=== PATIENT | female | born 1995 | race Native Hawaiian/Other Pacific Islander ===

== ENCOUNTER 2023-03-30 05:19 | Outpatient (CLI) | payer OTHER ==
[~2023-03-30] VITALS: Ht 160 cm; Wt 86.4 kg
[2023-03-30 05:34] VITALS: BP 122/77
[2023-03-30] MEDS ORDERED: TUMS500C PO (06:43)
[2023-03-30] MEDS ORDERED: PRENTAB9 PO (06:43)
[2023-03-30] MEDS ORDERED: IRON65TA2 PO (06:43)
[2023-03-30] MEDS ORDERED: HOME MED LIST COMPLETE! XX SCH (06:45)
[2023-03-30 08:43] VITALS: BP 121/81
== END 2023-03-30 08:55 | disposition home or self-care (01) ==
LOC: M LDO 05:19
PROVIDERS: ATTEND Obstetrics & Gynecology
DX: O47.1 False labor at or after 37 completed weeks of gestation (principal); O48.0 Post-term pregnancy; Z3A.40 40 weeks gestation of pregnancy; O99.013 Anemia complicating pregnancy, third trimester; Z79.899 Other long term (current) drug therapy
CPT/HCPCS: 59025; G0463

== ENCOUNTER 2023-03-31 05:50 | Outpatient (CLI) | payer OTHER ==
[~2023-03-31] VITALS: Ht 160 cm; Wt 85.6 kg
[~2023-03-31 05:50] MED LIST: IRON65TA2 PO; PRENTAB9 PO; TUMS500C PO
[2023-03-31] MEDS ORDERED: HOME MED LIST COMPLETE! XX SCH (06:00)
[2023-03-31 06:02] VITALS: BP 118/73
[2023-03-31 07:40] VITALS: BP 129/85
== END 2023-03-31 08:45 | disposition home or self-care (01) ==
LOC: M LDO 05:50
PROVIDERS: ATTEND Obstetrics & Gynecology
DX: O47.1 False labor at or after 37 completed weeks of gestation (principal); O48.0 Post-term pregnancy; Z3A.40 40 weeks gestation of pregnancy; Z79.899 Other long term (current) drug therapy
CPT/HCPCS: 59025; G0463

== ENCOUNTER 2023-03-31 17:18 | Inpatient (IN) | payer OTHER ==
[2023-03-31] VITALS (26 sets, daily range): BP systolic 90–194; BP diastolic 45–103
[~2023-03-31] VITALS: Ht 160 cm; Wt 85.3 kg
[2023-03-31] MEDS ORDERED: LACTATED RINGER'S 1000 ML IV STA (18:03)
[2023-03-31] MEDS ORDERED: CARBOPROST TROMETHAMINE 250 MCG/ML AMP IM PRN (18:05)
[2023-03-31] MEDS ORDERED: LIDOCAINE 1% MDV 20ML VIAL INFIL PRN (18:05)
[2023-03-31] MEDS ORDERED: OXYTOCIN DRIP 30 UNITS in IV 1 EA IV PRN (18:05)
[2023-03-31] MEDS ORDERED: TRANEXAMIC ACID INJection 1,000 MG in NS 100 ML IV PRN (18:05)
[2023-03-31] MEDS ORDERED: METHYLERGONOVINE MALEATE 0.2MG/ML 1ML VIAL IM PRN (18:05)
[2023-03-31] MEDS ORDERED: OXYTOCIN INJ 10UNITS/ML 1ML VIAL IM PRN (18:05)
[2023-03-31 18:34] LABS: HEMOGLOBIN 12.2 g/dl (12.0-15.5); MEAN CORPUSCULAR HEMOGLOBIN 30.7 pg (27.0-33.0); MEAN CORPUSCULAR HGB CONC 33.9 g/dl (32.0-36.5); MEAN CORPUSCULAR VOLUME 90.7 fl (80.0-96.0); PLATELET COUNT, AUTOMATED 215 10^3/uL (150-450); RED BLOOD COUNT 3.97 10^6/uL (4.00-5.40); WHITE BLOOD COUNT 18.1 10^3/uL (4.0-10.0)
[2023-03-31] MEDS ORDERED: LR 500 ML IV PRN (19:05)
[2023-03-31] MEDS ORDERED: EPIDURAL/PCA KEYS XX PRN (19:05)
[2023-03-31] MEDS ORDERED: ONDANSETRON 4MG 2ML VIAL IV PRN (19:05)
[2023-03-31] MEDS ORDERED: diphenhydrAMINE 50MG/ML VIAL IV PRN (19:05)
[2023-03-31] MEDS ORDERED: NALOXONE INJ 0.4MG/1ML VIAL IV PRN (19:05)
[2023-03-31] MEDS: FENTANYL/ROPIVACAINE/NACL BAG 100 ML EPIDURAL SCH (19:06)
[2023-03-31] MEDS: LR 1,000 ML IV SCH (19:11)
[2023-03-31] MEDS: ePHEDrine SULFATE 25 MG/5 ML(5MG/ML) SYRINGE IVP PRN ×3 (19:49→19:55)
[2023-03-31] MEDS ORDERED: CALCIUM CARBONATE 500 MG CHEW U/D PO ONE (22:00)
[2023-04-01] VITALS (40 sets, daily range): BP systolic 95–171; BP diastolic 51–110; O2SAT 99
[2023-04-01] MEDS: LR 1,000 ML IV SCH ×3 (03:37→15:23)
[2023-04-01] MEDS: FENTANYL/ROPIVACAINE/NACL BAG 100 ML EPIDURAL SCH ×2 (05:25→15:05)
[2023-04-01] MEDS ORDERED: OXYTOCIN DRIP 30 UNITS in IV 1 EA IV SCH (09:55)
[2023-04-01] MEDS ORDERED: IBUPROFEN 600MG TAB PO PRN (16:20)
[2023-04-01] MEDS ORDERED: DOCUSATE SODIUM 100MG CAPSULE PO PRN (16:20)
[2023-04-01] MEDS ORDERED: ACETAMINOPHEN 500 MG TAB PO PRN (16:20)
[2023-04-01] MEDS ORDERED: DIBUCAINE 1% OINTMENT 30GM TOP PRN (16:20)
[2023-04-01] MEDS ORDERED: METHYLERGONOVINE MALEATE 0.2 MG TAB PO PRN (16:20)
[2023-04-01] MEDS ORDERED: RHOGAM 300MCG (1500IU) INJ IM SCH (16:20)
[2023-04-01] MEDS ORDERED: ACETAMINOPHEN TAB 650MG DOSE (2X325MG) PO PRN (16:20)
[2023-04-01] MEDS: IBUPROFEN 800 MG TAB PO PRN (17:28)
[2023-04-01] MEDS ORDERED: MORPHINE 4 MG/ML 1ML VIAL As Ordered ONE (18:24)
[2023-04-01] MEDS ORDERED: MORPHINE 4 MG/ML 1ML VIAL IV ONE (18:25)
[2023-04-01] MEDS: OXYTOCIN DRIP 30 UNITS in IV 1 EA IV SCH ×2 (18:28→21:55)
[2023-04-01 19:23] LABS: HEMATOCRIT 30.7 % (36.0-47.0); MEAN CORPUSCULAR HGB CONC 32.9 g/dl (32.0-36.5); MEAN CORPUSCULAR VOLUME 94.2 fl (80.0-96.0); PLATELET COUNT, AUTOMATED 185 10^3/uL (150-450); RED BLOOD COUNT 3.26 10^6/uL (4.00-5.40); WHITE BLOOD COUNT 19.8 10^3/uL (4.0-10.0)
[2023-04-01 20:00] LABS: HEMOGLOBIN 9.9 g/dl (12.0-15.5)
[2023-04-02] MEDS: FENTANYL/ROPIVACAINE/NACL BAG 100 ML EPIDURAL SCH (01:05)
[2023-04-02 06:00] VITALS: BP 107/59; O2SAT 96
[2023-04-02 08:35] LABS: HEMATOCRIT 27.3 % (36.0-47.0); HEMOGLOBIN 9.1 g/dl (12.0-15.5); MEAN CORPUSCULAR HEMOGLOBIN 31.4 pg (27.0-33.0); MEAN CORPUSCULAR HGB CONC 33.3 g/dl (32.0-36.5); MEAN CORPUSCULAR VOLUME 94.1 fl (80.0-96.0); PLATELET COUNT, AUTOMATED 164 10^3/uL (150-450); WHITE BLOOD COUNT 14.4 10^3/uL (4.0-10.0)
[2023-04-02 08:38] LABS: HEMATOCRIT 27.2 % (36.0-47.0); HEMOGLOBIN 8.8 g/dl (12.0-15.5); MEAN CORPUSCULAR HEMOGLOBIN 30.8 pg (27.0-33.0); MEAN CORPUSCULAR HGB CONC 32.4 g/dl (32.0-36.5); MEAN CORPUSCULAR VOLUME 95.1 fl (80.0-96.0); PLATELET COUNT, AUTOMATED 154 10^3/uL (150-450); RED BLOOD COUNT 2.86 10^6/uL (4.00-5.40); WHITE BLOOD COUNT 14.2 10^3/uL (4.0-10.0)
[2023-04-02] MEDS: PRENATAL VITAMINS CHEWABLE TABLET PO SCH (09:00)
[2023-04-02] MEDS: IBUPROFEN 800 MG TAB PO PRN ×2 (09:00→21:26)
[2023-04-02 09:08] LABS: ALBUMIN 2.2 G/DL (3.2-5.2); ALKALINE PHOSPHATASE 125 U/L (46-116); ALT/SGPT 16 U/L (7.0-40); AST/SGOT 44 U/L (<34); BILIRUBIN,TOTAL 0.4 MG/DL (0.3-1.2); BLOOD UREA NITROGEN 6 MG/DL (9-23); CALCIUM LEVEL 8.9 MG/DL (8.5-10.1); CARBON DIOXIDE LEVEL 22 MMOL/L (20-31); CHLORIDE LEVEL 110 MMOL/L (98-107); CREATININE FOR GFR 0.72 MG/DL (0.55-1.30); GLOMERULAR FILTRATION RATE > 60.0 (>60); GLUCOSE, FASTING 75 MG/DL (60-100); POTASSIUM SERUM 3.7 MMOL/L (3.5-5.1); SODIUM LEVEL 139 MMOL/L (136-145); TOTAL PROTEIN 5.1 G/DL (5.7-8.2)
[2023-04-02 18:00] VITALS: BP 105/68; O2SAT 100
[2023-04-03 06:00] VITALS: BP 119/56; O2SAT 100
[2023-04-03] MEDS: PRENATAL VITAMINS CHEWABLE TABLET PO SCH (07:54)
[2023-04-03] MEDS ORDERED: MEASLES,MUMPS,RUBELLA VACCINE INJ (MMR-II) SC.IMMUN ONE (09:00)
[2023-04-03] MEDS ORDERED: ACET1TAB55 PO (09:21)
[2023-04-03] MEDS ORDERED: IBUP-1022 PO (09:21)
[2023-04-03] MEDS: IBUPROFEN 800 MG TAB PO PRN (12:07)
== END 2023-04-03 12:10 | disposition home or self-care (01) | DRG 807 ==
LOC: M LDO 17:18 → M LDI 18:10 → M OBS 04-01 20:50
PROVIDERS: ADMIT Obstetrics & Gynecology; ATTEND Obstetrics & Gynecology
PROC: 10D17Z9 Manual Extraction of Products of Conception, Retained, Via Natural or Artificial Opening (ICD-10-PCS; principal; 2023-04-01)
PROC: 10E0XZZ Delivery of Products of Conception, External Approach (ICD-10-PCS; 2023-04-01)
PROC: 10907ZC Drainage of Amniotic Fluid, Therapeutic from Products of Conception, Via Natural or Artificial Opening (ICD-10-PCS; 2023-04-01)
DX: O13.4 Gestational [pregnancy-induced] hypertension without significant proteinuria, complicating childbirth (principal); Z37.0 Single live birth; Z3A.40 40 weeks gestation of pregnancy; O77.0 Labor and delivery complicated by meconium in amniotic fluid; O72.0 Third-stage hemorrhage